=== PATIENT | male | born 1990 | race Caucasian/White ===

== ENCOUNTER 2016-10-20 13:46 | Emergency (ER) | payer MEDICAID ==
[~2016-10-20] VITALS: Wt 94.0 kg
[2016-10-20] MEDS ORDERED: ONDANSETRON (ODT) 4 MG TAB ODT STA (15:56)
--- NOTE | 2016-10-20 15:59 | ERD ---
ER Documentation Chief Complaint Date/Time DATE: 10/20/16 TIME: 15:57 Chief Complaint LEFT ANKLE PAIN AND SWELLING FROM PLAYING SOCCER. SLIPPED AND FELT A CRACK HPI This patient is a 26-year-old male with no significant medical history presenting to the emergency department for left ankle pain after injury today while playing soccer at approximately 1:00 PM. He states he was running when he twisted his ankle laterally and heard a crack. He is not able to weight- bear on the ankle secondary to pain. He reports 8 out of 10 pain on a pain scale and states it is throbbing. He denies any head injury, loss of consciousness, other injuries, or other symptoms. He has taken no medication at home for relief of symptoms. ROS All systems reviewed and are negative except as per history of present illness. FmHx Noncontributory for chief complaint Physical Exam Vitals Vital Signs Date Time Temp Pulse Resp B/P Pulse Ox O2 Delivery O2 Flow Rate FiO2 10/20/16 13:49 98.2 100 20 137/77 98 Physical Exam INITIAL VITAL SIGNS: Reviewed by me. GENERAL: Alert and interactive. No acute distress. HEAD: Head is normocephalic and atraumatic. EYES: EOMI. No scleral icterus. No conjunctival injection. ENT: Moist mucosa. NECK: Supple. Full range of motion. RESPIRATORY: Normal respiratory effort. Clear breath sounds bilaterally. No wheezing, rales, or rhonchi. CV: Regular rate and rhythm. Normal S1 S2. No S3 or S4. No murmurs. ABDOMEN: Soft, non-distended, non-tender. No guarding. No rebound. No masses. EXTREMITIES: There is tenderness to palpation of the lateral malleolus of the left lower extremity. There is ecchymosis present over the lateral malleolus on the left side. There is limited range of motion secondary to pain. There is slight inversion deformity of the left foot. The right lower extremity is normal in appearance. SKIN: Warm and dry. NEUROLOGIC: Alert and oriented x 4. Speech is normal. Moves all extremities equally. No motor or sensory deficits noted. Procedures/MDM 26-year-old male presents secondary to complaints of left ankle pain after injury today. On physical examination there is slight deformity of the left ankle and appears slightly inverted. There is some slight ecchymosis and edema as well as tenderness to palpation and limited range of motion secondary to pain of the left ankle. The patient was given p.o. [place] in the department for acute pain relief. 3 view left ankle x-ray interpreted by radiologist: Departure Condition: Stable MATTY ERVIN PA-C Oct 20, 2016 15:59
[2016-10-20] MEDS ORDERED: HYDROCODONE/APAP (5/325) TAB PO ONE (16:00)
--- NOTE | 2016-10-20 16:44 | RADRPT ---
PROCEDURE: XR Ankle. CLINICAL INDICATION: ankle injury/swelling/pain TECHNIQUE: AP and lateral views of the the left ankle were performed. COMPARISON: None. FINDINGS: Oblique minimally displaced fracture deformity of the distal fibular diaphysis 5 cm above the distal tip of the fibula. The ankle joint mortise is well maintained. The talar dome is intact. No ankl e joint mortise widening. Moderate periarticular soft tissue swelling greatest laterally. IMPRESSION: Minimally displaced transverse fracture of the distal fibular diaphysis just above the level of the ankle joint. Periarticular soft tissue swelling. RPTAT:AAJJ Physician Sarbjit Date Time Electronically viewed and signed by Physician Sarbjit on 10/20/2016 16:44 PIPER/
[2016-10-20] MEDS ORDERED: NAPR-260 PO (16:51)
[2016-10-20] MEDS ORDERED: HYDR-906 PO (16:51)
== END 2016-10-20 17:39 | disposition home or self-care (01) ==
LOC: FTE 13:46
DX: S82.422A Displaced transverse fracture of shaft of left fibula, initial encounter for closed fracture (principal); X50.1XXA Overexertion from prolonged static or awkward postures, initial encounter; Y92.9 Unspecified place or not applicable
CPT/HCPCS: 29505; 73610; Z7502; Z7610